=== PATIENT | female | born 1985 | race Caucasian/White ===

== ENCOUNTER 2020-10-06 15:07 | Emergency (ER) | payer SELFPAY ==
[~2020-10-06] VITALS: Ht 170.2 cm; Wt 85.6 kg
[2020-10-06 15:20] VITALS: BP 157/101
--- NOTE | 2020-10-06 15:21 | PHYS DOC ---
Adult General Chief Complaint Chief Complaint: ABSCESS HPI HPI Patient is a 35-year-old female presenting for genital infection. Reports noticing sore on outside of vagina which was red, hot and painful to touch earlier today. She reports taking a warm bath and trying to pop it with a safety pin which she thinks made worse. Continues to have pain with minimal milky colored drainage and so, she was concerned and came to the ER for evaluation. No history of MRSA, has history of folliculitis in the past but nothing this severe. No crepitus, fever, chills, diaphoresis or other concerning signs or symptoms. No bladder or bowel incontinence Review of Systems Review of Systems Fourteen body systems of review of systems have been reviewed. See HPI for pertinent positives and negative responses, other keane all other systems are negative, non-pertinent or non-contributory Allergies Allergies Allergies Coded Allergies Type Severity Reaction Last Updated Verified No Known Drug Allergies 10/06/20 No Physical Exam Physical Exam Constitutional: Well developed, well nourished, no acute distress, non-toxic appearance. HENT: Normocephalic, atraumatic, bilateral external ears normal, oropharynx moist, no oral exudates, nose normal. Eyes: PERRLA, EOMI, conjunctiva normal, no discharge. Neck: Normal range of motion, no tenderness, supple, no stridor. Cardiovascular: Heart rate regular, sinus rhythm, no murmurs rubs or gallops Lungs & Thorax: Bilateral breath sounds clear to auscultation Abdomen: Bowel sounds normal, soft, no tenderness, no masses, no pulsatile ma sses. Nonsurgical abdomen, no peritoneal signs Skin: Warm, dry, no erythema, no rash. Back: No tenderness, no CVA tenderness. Extremities: No tenderness, no cyanosis, no clubbing, ROM intact, no edema. Neurologic: Alert and oriented X 3, grossly normal motor & sensory function, no focal deficits noted. Psychologic: Affect normal, judgement normal, mood normal. Current Patient Data Vital Signs Vital Signs Date Time Temp Pulse Resp B/P (MAP) Pulse Ox O2 Delivery O2 Flow Rate FiO2 10/06/20 15:20 98.6 92 16 157/101 (119) 98 Room Air Vital Signs Date Time Temp Pulse Resp B/P (MAP) Pulse Ox O2 Delivery O2 Flow Rate FiO2 10/06/20 15:20 98.6 92 16 157/101 (119) 98 Room Air EKG EKG [] Radiology/Procedures Radiology/Procedures [] Heart Score Risk Factors: Risk Factors: DM, Current or recent (<one month) smoker, HTN, HLP, family history of CAD, obesity. Risk Scores: Risk Factors: DM, Current or recent (<one month) smoker, HTN, HLP, family history of CAD, obesity. Course & Med Decision Making Course & Med Decision Making Pertinent Labs and Imaging studies reviewed. (See chart for details) [] Dragon Disclaimer Dragon Disclaimer This electronic medical record was generated, in whole or in part, using a voice recognition dictation system. Departure Departure: Impression: Primary Impression: Cellulitis of right groin Disposition: HOME / SELF CARE / HOMELESS Condition: STABLE Referrals: PCP,NO (PCP) Patient Instructions: Cellulitis Additional Instructions: You were seen for an infection called cellulitis. You should mel the area of redness when you get home. If your redness spreads past the marked area at 24 hours you should have it evaluated again. You do not have an abscess right now but you could develop one. If so you will need to have it drained. You should return to the ED immediately if you develop worsening pain, fever, swelling, redness, drainage, red streaking, crackles/rice crispy crunching with palpation, any sign of abscess, or any other new or concerning symptoms. Take the entire course of antibiotics as prescribed. Scripts Clindamycin Hcl (CLINDAMYCIN HCL) 300 Mg Capsule 1 CAP PO QID for CELLULITIS for 7 Days, #28 CAP Prov: NANCY SCHULER DO 10/06/20 NANCY SCHULER DO Oct 06, 2020 15:21
[2020-10-06] MEDS ORDERED: CLIN300C9 PO (15:36)
== END 2020-10-06 15:47 | disposition home or self-care (01) ==
LOC: ER 15:07
DX: L03.314 Cellulitis of groin (principal)
CPT/HCPCS: 99283-25